=== PATIENT | male | born 1955 | race Caucasian/White ===

== ENCOUNTER → 2017-07-05 | Outpatient (CLI) | payer OTHER, MEDICARE ==
[~2017-07-05] MED LIST: 3N1 COMMODE MC; ASPI325T32 PO; DIAZ10TA4 PO; HYDR-580 PO; OMEP20CA9 PO; TRAM50TA2 PO; WALK1EAC23 MC
--- NOTE | 2017-07-05 15:29 | RADRPT ---
PROCEDURE: Left knee radiographs. CLINICAL INDICATION: Left knee pain. TECHNIQUE: Four views. Weight bearing. Frontal, lateral, oblique, and patellar view. COMPARISON: 07/14/2016. FINDINGS: There is no fracture or dislocation. The soft tissues are normal. Articular surfaces are intact. There is no lytic or blastic lesion. There is no radiopaque foreign body. IMPRESSION: 1. Normal images of the left knee. RPTAT: QQ .Edmundo Walker MD, MD Date Time Electronically viewed and signed by .Edmundo Walker MD, MD on 07/05/2017 15:28 .R/
--- NOTE | 2017-07-08 08:14 | RADRPT ---
PROCEDURE: XR pelvis and left hip. CLINICAL INDICATION: PAIN TECHNIQUE: AP pelvis and frog lateral views of the left hip were performed. COMPARISON: Plain radiographs of the pelvis and left hip from 11/05/2016 FINDINGS: There is normal mineralization and alignment. No acute fracture or osseous lesion is identified. A total left hip prosthesis is again noted in near anatomic alignment without evidence of hardware l oosening. Mild to moderate narrowing of the right hip joint is again noted. The soft tissues are unremarkable. IMPRESSION: Redemonstration of a left hip prosthesis in near anatomic alignment without evidence of hardware loo sening. Stable mild to moderate narrowing of the right hip joint. RPTAT: EE Physician Amie Date Time Electronically viewed and signed by Physician Amie on 07/08/2017 08:14 /
== END | disposition home or self-care (01) ==
LOC: HKI 09:39
PROVIDERS: ATTEND Orthopaedic Surgery
DX: M25.562 Pain in left knee (principal); Z96.642 Presence of left artificial hip joint
CPT/HCPCS: 73502; 73564; G0463

== ENCOUNTER → 2017-07-19 | Outpatient (CLI) | payer OTHER, MEDICARE ==
--- NOTE | 2017-07-19 16:23 | RADRPT ---
PROCEDURE: Left knee radiographs. CLINICAL INDICATION: Left knee pain. TECHNIQUE: Four views. Weight bearing. Frontal, lateral, oblique, and patellar view. COMPARISON: 07/05/2017. FINDINGS: There is no fracture or dislocation. The soft tissues are normal. Articular surfaces are intact. There is no lytic or blastic lesion. There is no radiopaque foreign body. IMPRESSION: 1. Normal images of the left knee. 2. No change from 07/05/2017. RPTAT: QQ .Edmundo Walker MD, MD Date Time Electronically viewed and signed by .Edmundo Walker MD, MD on 07/19/2017 16:23 .R/
== END | disposition home or self-care (01) ==
LOC: HKI 13:45
PROVIDERS: ATTEND Orthopaedic Surgery
DX: Z09 Encounter for follow-up examination after completed treatment for conditions other than malignant neoplasm (principal); S82.125A Nondisplaced fracture of lateral condyle of left tibia, initial encounter for closed fracture; S83.232A Complex tear of medial meniscus, current injury, left knee, initial encounter; X58.XXXA Exposure to other specified factors, initial encounter; Z96.642 Presence of left artificial hip joint
CPT/HCPCS: 73564; G0463

== ENCOUNTER 2018-03-16 12:13 | Emergency (ER) | END 2018-03-16 15:00 | disposition home or self-care (01) ==

== ENCOUNTER 2018-11-12 10:25 | Emergency (ER) | END 2018-11-12 12:18 | disposition home or self-care (01) ==